=== PATIENT | male | born 1960 | race Caucasian/White ===

== ENCOUNTER 2016-11-12 11:06 | Outpatient (RCR) | payer MEDICAID, OTHER ==
[~2016-11-12 11:06] MED LIST: ATOR40TA PO; AZIT250T5 PO; DULO30CA3 PO; HYDR-3816 PO; PRD20T PO; PREG150C PO; UMEC1BLS IH
== END 2016-12-18 13:25 | disposition home or self-care (01) ==
PROVIDERS: ATTEND Nurse Practitioner Community Health
DX: M54.2 Cervicalgia (principal)

== ENCOUNTER 2018-01-07 11:00 | Outpatient (CLI) | payer MEDICAID ==
[~2018-01-07] VITALS: Ht 177.8 cm; Wt 79.4 kg
[~2018-01-07 11:00] MED LIST changes: +AZIT250T12 PO; -AZIT250T5 PO; +HYDR-34 PO; -HYDR-3816 PO
[2018-01-07] MEDS ORDERED: TRAZ150T72 PO (11:10)
[2018-01-07] MEDS ORDERED: DULO60CA58 PO (11:10)
[2018-01-07] MEDS ORDERED: MELO7.5T46 PO (11:10)
[2018-01-07] MEDS ORDERED: OMEP20CA12 PO (11:10)
[2018-01-07] MEDS ORDERED: IPRA4AER IH (11:10)
== END 2018-01-07 12:02 | disposition home or self-care (01) ==
LOC: PREOP 11:00
PROVIDERS: ATTEND Surgery
DX: Z01.818 Encounter for other preprocedural examination (principal)